=== PATIENT | male | born 1960 | race Caucasian/White ===

== ENCOUNTER 2018-03-11 09:09 | Emergency (ER) | payer BC, SELFPAY ==
[2018-03-11 09:16] VITALS: BP 151/86; PULSE 60; RESP 24; TEMP 36.2; O2SAT 100
--- NOTE | 2018-03-11 09:22 | ED.GENADUL ---
Disposition Clinical Impression: Nephrolithiasis, Hydronephrosis Disposition: HOME Condition: Good Instructions: Kidney Stones (ED) Additional Instructions: Drink plenty of fluids. Take the Flomax as directed. Alternate Tylenol and Motrin as needed and directed for pain. You should receive a call from care management regarding follow-up with urologist Dr. Bautista next week. Return to the emergency department with any worsening or new concerning symptoms. Prescriptions: Tamsulosin HCl [Flomax] 0.4 mg PO DAILY 10 Days cap.er.24h Referrals: Ari Bautista MD [ [facility] STAFF PHYSICIAN] - Medical Decision Making - Lab Data Laboratory Tests 03/11/18 03/11/18 03/11/18 09:20 09:20 10:25 WBC 10.86 H RBC 5.12 Hgb 15.5 Hct 44.3 MCV 86.5 MCH 30.3 MCHC 35.0 RDW 12.7 Plt Count 184 MPV 9.3 Immature Gran % 0.2 Neutrophils % 82.4 Lymphocytes % 11.2 Monocytes % 5.6 Eosinophils % 0.4 Basophils % 0.2 Absolute Neutrophils 8.95 H Absolute Lymphocytes 1.22 Absolute Monocytes 0.61 Absolute Eosinophils 0.04 Absolute Basophils 0.02 Sodium 138 Potassium 3.8 Chloride 101 Carbon Dioxide 29.7 Anion Gap 7.3 BUN 23 H Creatinine 1.27 Estimated GFR/1.73 m2 58.05 Glucose 171 H Calcium 9.3 Total Bilirubin 1.7 H AST 18 ALT 25 Alkaline Phosphatase 74 Total Protein 8.2 Albumin 4.1 Lipase 142 Urine Color Yellow Urine Clarity Sl cloudy Urine pH 8.5 H Ur Specific Odonnell 1.015 Urine Protein Negative Urine Ketones 40 H Urine Blood Moderate H Urine Nitrite Negative Urine Bilirubin Negative Urine Urobilinogen 0.2 Ur Leukocyte Esterase Negative Urine RBC 20-50 H Urine WBC 0-2 Ur Epithelial Cells Rare Urine Crystals Few amorphous Urine Bacteria Few Urine Casts 0-1 rbc Urine Mucus Trace Ur Culture Indicated? No Urine Glucose 100 - Radiology Data Radiology results: report reviewed, image reviewed CT renal colic: Severe left hydronephrosis and left perinephric stranding. There is a 4.6-4.8 mm calculus in the left UV junction. - Medical Decision Making 58-year-old male who presents with left flank pain with vomiting ?3 this morning. No previous history of kidney stones. Unable to do full exam including genitourinary due to patient discomfort. He has left CVA tenderness. Abdomen soft and nontender. No fever. Normal blood pressure. We will place an IV, bolus IV fluids, Toradol, Zofran, labs, urinalysis and CT renal colic. Will reassess including exam. 1015 --patient feels better. Unable to give urinalysis. To go to CT now. 1050 --labs and imaging reviewed. Urinalysis noted blood but no infection. Normal creatinine. CT notes severe left hydronephrosis with perinephric stranding as well as a 4.6 mm calculus in the left UV junction. Patient is completely pain-free. He states he had relief after Toradol to 08/22 from 04/21 but then pain returned while in CAT scan. States after CAT scan he urinated and pain is now completely resolved. Suspect stone in bladder or he may have passed it. Will call urology for recommendations. exam no acute findings. 1130 --discussed with Dr. Bautista -agrees that stone may be likely in bladder or patient may have passed it. Recommends Flomax. Will follow up with patient in the office next week. Patient feels good to go home. Patient initially declined pain medication for home but is now agreeable to take home if needed. Will place pt on care management list to make pt a f/u appt with urology for next week. Pt instructed to return with any worsening symptoms or concerns. History of Present Illness - General Chief complaint: FlankPain Stated complaint: LOWER BACK PAIN Time Seen by Provider: 03/11/18 09:19 Source: patient Mode of arrival: ambulatory Limitations: no limitations - History of Present Illness Initial comments: Patient is a 58-year-old male presents with left flank pain since this morning. No radiation of pain. Patient vomited 3 times. Patient presented to ED extremely uncomfortable with nausea and sitting up on stretcher. Unable to fully assess due to pain. - Related Data Cholecalciferol (Vitamin D3) [Vitamin D3] 1,000 unit PO DAILY 01/17/13 Tamsulosin HCl [Flomax] 0.4 mg PO DAILY 10 Days cap.er.24h 03/11/18 Allergies Allergy/AdvReac Type Severity Reaction Status Date / Time No Known Allergies Allergy Unverified 03/11/18 09:23 Review of Systems Constitutional: denies: chills, fever Eyes: denies: eye pain ENT: denies: ear pain, dental pain Respiratory: denies: cough, shortness of breath Cardiovascular: denies: chest pain, dyspnea on exertion Gastrointestinal: denies: abdominal pain, nausea, vomiting Genitourinary: denies: urgency, dysuria, frequency Musculoskeletal: back pain Skin: denies: rash, lesions Neurological: denies: headache, weakness, numbness Past Medical History - Past Medical History Colon adenoma Surgical history: other (Ex lap with lysis of RLQ constriction band) - Social History Smoking status: never smoker Alcohol use: none Drug use: none General Exam - General Limitations: no limitations General appearance: alert, other (appears uncomfortable) - Eye Eye exam: Present: EOMI - ENT ENT exam: Present: mucous membranes moist - Neck Neck exam: Present: normal inspection - Respiratory Respiratory exam: Present: normal lung sounds bilaterally. Absent: respiratory distress, wheezes, rales, rhonchi, stridor - Cardiovascular Cardiovascular Exam: Present: regular rate, normal rhythm. Absent: bradycardia, tachycardia - GI/Abdominal GI/Abdominal exam: Present: soft, normal bowel sounds. Absent: distended, tenderness, guarding, rebound, rigid - exam: Present: normal inspection. Absent: testicular tenderness, scrotal swelling External exam: Present: normal external exam. Absent: erythema, swelling, lesions - Back Exam Back exam: Present: CVA tenderness (L). Absent: CVA tenderness (R) - Neurological Exam Neurological exam: Present: alert, oriented X3 - Psychiatric Psychiatric exam: Present: normal affect - Skin Skin exam: Present: warm, dry, intact Course Vital Signs - 24 hr 03/11/18 09:16 Temperature 97.2 F L Pulse 60 Respiratory 24 Rate Blood Pressure 151/86 Pulse Oximetry 100
--- NOTE | 2018-03-11 09:30 | DI.RPTCT_ITS ---
SYMPTOM/DIAGNOSIS: LT FLANK PAIN, VOMITING, ? KIDNEY STONE RENAL COLIC CT: The noncontrast enhanced examination was performed according to the usual protocol. There are small regions of bibasilar atelectasis. No acute abnormality is noted in the lung bases. The liver, gallbladder, pancreas and spleen are intact. The right kidney is unremarkable. There is severe hydronephrosis and perinephric stranding involving the left kidney. There is left ureterectasis and a 4.8 mm. calculus is impacted at the left ureterovesical junction. A small excrescence on the superior border of the left kidney likely represents a small cyst. Allowing for incomplete distension, the bladder appears intact. Two small fat containing inguinal hernias are demonstrated. The adrenals are normal. There is no evidence of bowel obstruction. The appendix is normal. Sigmoid diverticulosis is noted without evidence of diverticulitis. Calcification is demonstrated in a mildly enlarged prostate. There are atherosclerotic changes involving the aorta without evidence of an aneurysm. Mild degenerative changes involving the lumbar spine are identified. The bony structures appear otherwise unremarkable. SUMMARY: There is severe left hydronephrosis and perinephric stranding and ureterectasis secondary to a 4.6 mm. stone impacted at the left ureterovesical junction.
[2018-03-11] MEDS: Ondansetron 4 MG/2 ML VIAL IVP (09:31)
[2018-03-11] MEDS: Ketorolac 30 MG/ML VIAL IVP (09:31)
[2018-03-11] MEDS: Normal Saline 1,000 ML 1000 ML IV (09:37)
[2018-03-11] MEDS: Normal Saline Flush 10 ML SYR IVP (09:38)
[2018-03-11 09:40] LABS: Abs Immature Grans 0.02 k/cumm (0.0-0.09); Absolute Basophil Count 0.02 k/cumm (0.0-0.2); Absolute Eosinophil Count 0.04 k/cumm (0.0-0.7); Absolute Lymphocyte Count 1.22 k/cumm (1.2-3.4); Absolute Monocyte Count 0.61 k/cumm (0.11-0.7); Absolute Neutrophil Count 8.95 k/cumm (1.2-6.7); Basophils % 0.2; Eosinophils % 0.4; HCT 44.3 % (40.0-50.0); HGB 15.5 g/dL (13.5-17.5); Immature Grans % 0.2; Lymphocytes % 11.2; Mean Corpuscular Hemoglobin 30.3 pg (27.0-33.0); Mean Corpuscular Volume 86.5 fL (80-95); Mean Platelet Volume 9.3 fL (8.0-11.0); Monocytes % 5.6; Neutrophils % 82.4; Platelet Count 184 x1000/uL (130-400); RBC 5.12 m/cumm (4.50-6.00); RBC Distribution Width 12.7 % (11.8-14.1); White Blood Cell Count 10.86 k/cumm (4.4-10.8)
[2018-03-11 09:56] LABS: ALT 25 U/L (12-78); AST 18 U/L (15-37); Albumin 4.1 g/dL (3.4-5.0); Alkaline Phosphatase 74 U/L (46-116); Anion Gap 7.3 mmol/L (3-11); BUN 23 mg/dL (7-18); Bilirubin, Total 1.7 mg/dL (0.2-1.0); CO2 29.7 mmol/L (21.0-32.0); CREATININE 1.27 mg/dL (0.70-1.30); Calcium 9.3 mg/dL (8.5-10.1); Chloride 101 mmol/L (98-107); Estimated GFR 58.05 (mL/min/1.73m2); Glucose 171 mg/dL (70-100); Lipase 142 U/L (73-393); Potassium 3.8 mmol/L (3.5-5.1); Sodium 138 mmol/L (136-145); Total Protein 8.2 g/dL (6.4-8.2)
[2018-03-11 10:29] LABS: Bilirubin Negative (Negative); Blood Moderate (Negative); Clarity Sl Cloudy; Glucose 100 mg/dL (Negative); Ketones 40 mg/dL (Negative); Leukocyte Esterase Negative (Negative); Nitrite Negative (Negative); Specific Gravity 1.015 (1.005-1.025); Urobilinogen 0.2 EU/dL (Up TO 0.2); pH 8.5 (5-8)
[2018-03-11 10:39] LABS: Bacteria Few HPF (Negative); Crystals Few Amorphous HPF (Negative); Epithelial Cells Rare HPF (Negative); Mucus Trace (Negative); RBC 20-50 (0-2); WBC 0-2 HPF (0-5)
[2018-03-11 10:40] LABS: C & S Indicated? No
[2018-03-11] MEDS: oxyCODONE 5 MG TAB 10 MG PO (11:42)
[2018-03-11 11:45] VITALS: BP 114/80; PULSE 62; RESP 16; TEMP 36.6; O2SAT 99
--- NOTE | 2018-03-12 11:17 | PDOC.ERCMPRO ---
Care Management Progress Note 03/12-Dr. Elizabeth requested assistance with a urology f/u in one week for kidney stone with hydronephrosis. Dr. Bautista and Jennifer were consulted on this patient. Referral faxed to Urology this am.
== END 2018-03-11 11:56 | disposition home or self-care (01) ==
PROVIDERS: Emergency Provider Physician Assistant; PCP Family Medicine
DX: N13.2 Hydronephrosis with renal and ureteral calculous obstruction (principal)
CPT/HCPCS: 80053; 83690; 96361; 96374; 96375; 99284; 74176; 81003; 81015; 85025; 99285; J2405

== ENCOUNTER 2020-10-09 15:40 | Outpatient (REF) | payer BC, SELFPAY ==
[2020-10-09 22:08] LABS: Bilirubin Negative (Negative); Blood Negative (Negative); Clarity Clear (Clear); Glucose Negative (Negative); Ketones Negative (Negative); Leukocyte Esterase Negative (Negative); Nitrite Negative (Negative); Specific Gravity >= 1.030 (1.005-1.025); Urobilinogen 0.2 EU/dL (Up TO 0.2)
[2020-10-10 16:46] LABS: PSA, Screening 1.6 ng/mL (0.0-4.5)
== END 2020-10-09 15:41 | disposition home or self-care (01) ==
LOC: LBN 15:40
PROVIDERS: PCP Family Medicine; Visit Provider Family Medicine
DX: Z00.00 Encounter for general adult medical examination without abnormal findings (principal); R35.0 Frequency of micturition; Z12.5 Encounter for screening for malignant neoplasm of prostate
CPT/HCPCS: 84153; 81003

== ENCOUNTER 2022-01-14 04:02 | Outpatient (CLI) | payer BC, SELFPAY ==
[2022-01-14 12:37] LABS: ALT 34 U/L (16-63); AST 20 U/L (15-37); Albumin 3.6 g/dL (3.4-5.0); Alkaline Phosphatase 67 U/L (46-116); Anion Gap 6.3 mmol/L (3-11); BUN 18 mg/dL (7-18); Bilirubin, Total 1.1 mg/dL (0.2-1.0); CO2 31.7 mmol/L (21.0-32.0); Calcium 8.7 mg/dL (8.5-10.1); Calculated LDL 147 mg/dL (<100); Chloride 101 mmol/L (98-107); Cholesterol 214 mg/dL (<200); Glucose 86 mg/dL (74-106); HDL Cholesterol 58 mg/dL (40-60); Potassium 3.9 mmol/L (3.5-5.1); Sodium 139 mmol/L (136-145); Total Protein 7.2 g/dL (6.4-8.2); Triglyceride 49 mg/dL (<150)
[2022-01-14 23:57] LABS: PSA, Screening 1.8 ng/mL (<=4.5)
== END 2022-01-14 04:03 | disposition home or self-care (01) ==
LOC: LOS 04:02
PROVIDERS: PCP Family Medicine; Visit Provider Family Medicine
DX: Z00.00 Encounter for general adult medical examination without abnormal findings (principal); Z13.220 Encounter for screening for lipoid disorders; R35.0 Frequency of micturition; Z12.5 Encounter for screening for malignant neoplasm of prostate
CPT/HCPCS: 36415; 80053; 80061; 84153

== ENCOUNTER 2022-04-21 15:15 | Emergency (ER) | payer BC, SELFPAY ==
[2022-04-21] VITALS (18 sets, daily range): BP systolic 113–162; BP diastolic 66–92; PULSE 57–79; RESP 8–20; TEMP 37; O2SAT 96–100
--- NOTE | 2022-04-21 15:15 | RT.EKG_ITS ---
APPROVED REPORT Exam: Resting ECG Reason for Exam: chest pressure Patient Location: E HR:67 bpm ECG Measurements Heart Rate 67 AXIS WA 144 P 16 QRSd 94 QRS 10 QT 371 T 13 QTc 393 Conclusion Sinus rhythm...normal P axis, V-rate 60- 99 sinus rhtyhm, normal axis, normal intervals, non ischemic
--- NOTE | 2022-04-21 15:30 | DI.RAD_ITS ---
Exam(s) XR PORTABLE CHEST AP EXAM: XR PORTABLE CHEST AP CLINICAL HISTORY: chest pain, sob TECHNIQUE: 2D digital imaging was performed. COMPARISON: CR ABD FLAT UPRIGHT PA CHEST from 03/25/2017 FINDINGS: LUNGS: Clear. No pleural abnormality seen. HEART: Normal. AORTA: Normal. BONES: Unremarkable for age. Soft tissues: Unremarkable. IMPRESSION: No acute findings. DATA REPOSITORY: RADIATION DOSE DELIVERED:
--- NOTE | 2022-04-21 15:46 | ED.GENADUL_ITS ---
Discharge Plan Disposition Patient Disposition: HOME Condition: Improving Discharge Details Clinical Impression: Chest pain Primary Care Provider: Rosalia Leija ED Provider: Miguel Schaeffer Home Meds and New Rx's Prescriptions: New aspirin 81 mg tablet,delayed release (DR/EC) 81 mg PO DAILY 7 Days Qty: 7 0RF No Action cholecalciferol (vitamin D3) 50 mcg (2,000 unit) capsule 50 mcg PO DAILY glucosamine sulfate [Glucosamine] 750 mg Tablet 1,500 mg PO DAILY Rx Instructions: administer with meals Discharge Instructions Instructions: Chest Pain (ED) Additional Instructions: Please follow-up with your primary care physician. Please return to the emergency department for any worsening symptoms. We will be reaching out to schedule you with local [facility] for further evaluation. Medical Decision Making 62-year-old male presents with left anterior chest pain and resolved pallor in the setting of physical labor at home, resolved before arrival, no history of cardiac disease or thromboembolic disease, hemodynamically stable afebrile nontoxic no tachypnea tachycardia or hypoxia no peripheral edema. EKG normal sinus rhythm normal axis consider slight ST depressions V5 V6. Consider ACS versus orthostasis/vasovagal versus musculoskeletal strain versus less likely PE or aortic pathology. Will obtain serial troponins, aspirin is already been provided prearrival, patient not endorsing any pain nausea or systemic signs of illness at this time, will obtain EKG and chest x-ray as well as basic labs disposition pending reassessment of symptoms and lab and imaging results. 19: 22 patient resting comfortably afebrile nontoxic no chest pain no respiratory distress x-ray and labs unremarkable. Consider vasospastic event versus musculoskeletal pain versus costochondritis versus pleurisy. Will refer patient to cardiology for follow-up. Will follow with his primary; home care instructions and return precautions given HPI General Date/Time Provider Initiated Documentation: 04/21/22 15:27 . HPI Narrative: 62-year-old male presents with left anterior chest pain associated with shortness of breath that began while he was performing manual labor at home this afternoon/evening, self resolved, gave him aspirin. endorses that he appeared slightly chalky in color during this event. Symptoms have resolved on their own. Denies chest pain or shortness of breath currently. Did have symptoms of indigestion yesterday. Denies history of cardiac disease denies history of thromboembolic phenomenon. Denies recent travel, denies recent injury Related Data Home Medications Medication Instructions Recorded Confirmed cholecalciferol (vitamin D3) 50 50 mcg PO DAILY 10/09/20 04/21/22 mcg (2,000 unit) capsule aspirin 81 mg tablet,delayed 81 mg PO DAILY 7 days #7 tabs 04/21/22 release glucosamine sulfate 750 mg tablet 1,500 mg PO DAILY 04/21/22 04/21/22 Previous Rx's Medication Instructions Recorded aspirin 81 mg tablet,delayed 81 mg PO DAILY 7 days #7 tabs 04/21/22 release Allergies Allergy/AdvReac Type Severity Reaction Status Date / Time No Known Allergies Allergy Verified 10/30/21 11:49 General Stated Complaint: Chest Pain YAMILET: 2 Review of Systems Narrative: Review of Systems Constitutional: negative Eyes: negative ENT: negative Cardiovascular: Chest pain Respiratory: negative Gastrointestinal: negative : negative Musculoskeletal: negative Skin: negative Neurologic: negative Psych: negative PFSH All Active Problems (Updated 04/21/22 @ 19:24 by Miguel Schaeffer MD) Chest pain (Acute) Urinary frequency (Acute) COVID (Acute ~03/2021) Diarrhea (Acute) Annual physical exam (Acute 10/15/17) Diverticulosis of colon without diverticulitis (Acute) Polyp of colon (Acute) 2003; 2005; 2007; TUBULAR ADENOMA and hyperplastic polyp 2012; TUBULAR ADENOMA Scrotal varices (Acute) LEFT Medical History Diverticulosis Herpes zoster Scrotal varices Tubular adenoma of colon Surgical History Colonoscopy - IV Sedation (03/25/17) Repair of inguinal hernia (~08/2003) B/L Family History Mother , 92 Essential hypertension Heart disease Hyperlipidemia Father , 68 Diabetes Prostate cancer Sister Colon cancer Brother Diabetes Essential hypertension Hyperlipidemia Maternal Grandfather Throat cancer Paternal Grandfather , 66 Alcohol abuse Maternal Grandmother , 76 No problems noted. Paternal Grandmother , 77 Colon cancer Sister , MVA at age 60. No problems noted. Sister No problems noted. Sister No problems noted. Sister No problems noted. Son No problems noted. Son No problems noted. Social History (Updated 01/09/22 @ 10:35 by Lluvia Farah) Smoking/Tobacco Use Status: Never Second Hand Exposure: No Smoking risk assessment performed?: Yes Alcohol Intake: never Drug use: Never Caregiver/Support person: No Household members: spouse and children Housing: house Communication Needs: Corrective Lenses Do you need help understanding health information?: Never Pets and animals: Yes Pets and animals: dog(s) Sexually active: Yes Do you think of yourself as: straight/heterosexual Current gender identity: male What is your relationship status?: How often do you talk on the phone with friends or family?: three or more times per week How often do you get together with friends or relatives?: three or more times per week How often do you attend samaritan or taoist services?: decline to answer Do you belong to any clubs or organized social groups?: no Panel score (0-1 are the most socially isolated patients): 2 What type of physical activity do you participate in: other Details: Farming Duration: > 90 minutes/day Frequency: daily Laura/Religious: No preference Special laura needs: No Seatbelt use: always Drive intox or ride w/intox class a regional drivers: No Do you feel safe at home: Yes Do you feel safe in your relationship?: Yes Exam Narrative Exam Narrative: Physical Examination General: alert, awake, cooperative, resting comfortably, no acute distress HEENT: normocephalic, atraumatic; PERRL, EOM intact, conjunctiva normal; no nasal discharge; moist mucous membranes, oral and pharyngeal mucosa normal, tolerating secretions Neck: supple, trachea midline; full ROM Chest: normal to inspection Respiratory: normal respiratory effort, speaking in full sentences, clear to auscultation, no wheezing, rales or rhonchi Cardiac: regular rate, regular rhythm, S1S2 intact, no murmurs rubs or gallops GI: abdomen soft, non-tender, non-distended; no palpable mass or hepatosplenomegaly Skin: no lesions, rashes or trauma appreciated Neuro: AAOx3, normal speech, moving all extremities Extremities: No peripheral edema Psych: Appropriate mood and affect Course Vital Signs Vital signs: Vital Signs Temperature 37.0 C 04/21/22 15:20 Pulse 66 04/21/22 15:20 Respiratory Rate 12 04/21/22 15:20 Blood Pressure 162/92 H 04/21/22 15:20 Pulse Oximetry 98 04/21/22 15:20 Temperature 37.0 C 04/21/22 15:20 Pulse 65 04/21/22 15:29 Pulse 71 04/21/22 15:30 Respiratory Rate 14 04/21/22 15:30 Respiratory Effort Non-Labored 04/21/22 15:36 Blood Pressure 162/92 H 04/21/22 15:29 Blood Pressure Mean 109 04/21/22 15:29 Blood Pressure Position Sitting 04/21/22 15:20 Pulse Oximetry 99 04/21/22 15:30 Oxygen Delivery Method Room Air 04/21/22 15:20 Oxygen Flow Rate 0 04/21/22 15:20
[2022-04-21 15:59] LABS: Abs Immature Grans 0.04 10^3/uL (0.0-0.06); Absolute Basophil Count 0.06 10^3/uL (0.0-0.2); Absolute Eosinophil Count 0.34 10^3/uL (0.0-0.7); Absolute Lymphocyte Count 1.95 10^3/uL (1.2-3.4); Absolute Neutrophil Count 5.13 10^3/uL (1.2-6.7); Basophils % 0.7; Eosinophils % 4.1; HCT 44.7 % (40.0-50.0); HGB 15.5 g/dL (13.5-17.5); Immature Grans % 0.5; Lymphocytes % 23.7; MCH 29.9 pg (27.0-33.0); MCHC 34.7 % (32.0-36.0); MCV 86 fL (80-95); MPV 9.4 fL (8.0-11.0); Monocytes % 8.5; Neutrophils % 62.5; Platelet Count 214 10^3/uL (130-400); RBC 5.19 10^6/uL (4.36-5.78); RDW 12.2 % (11.8-14.1); RDW-SD 38.9 fL; WBC 8.22 10^3/uL (4.4-10.8)
[2022-04-21 16:15] LABS: ALT 32 U/L (16-63); AST 18 U/L (15-37); Albumin 3.8 g/dL (3.4-5.0); Alkaline Phosphatase 82 U/L (46-116); Anion Gap 5.5 mmol/L (3-11); BUN 16 mg/dL (7-18); Bilirubin, Total 0.9 mg/dL (0.2-1.0); CO2 31.5 mmol/L (21.0-32.0); CREATININE 0.9 mg/dL (0.70-1.30); Calcium 9.2 mg/dL (8.5-10.1); Chloride 100 mmol/L (98-107); Estimated GFR 95.97 (mL/min/1.73m2); Glucose 83 mg/dL (74-106); Lipase 84 U/L (73-393); Potassium 3.8 mmol/L (3.5-5.1); Sodium 137 mmol/L (136-145); Troponin I < 50 ng/L (<or=60)
[2022-04-21 19:00] LABS: Troponin I < 50 ng/L (<or=60)
--- NOTE | 2022-04-21 20:35 | NUR.NOTE ---
Referral made to Cardiology for chest pain next week per Dr. Linn. Put the referral in the care manger's box for follow up assistance as I was unable to fax the referral due to technical difficulties with the fax machine.Nursing Note:
[2022-04-22 10:50] LABS: Lab Add On Test DONE
[2022-04-22 11:17] LABS: Calculated LDL 139 mg/dL (<100); Cholesterol 219 mg/dL (<200); HDL Cholesterol 53 mg/dL (40-60); TSH (W/Ref FT4) 2.95 uIU/mL (0.36-3.74); Triglyceride 136 mg/dL (<150)
== END 2022-04-21 19:37 | disposition home or self-care (01) ==
PROVIDERS: Emergency Provider Emergency Medicine; PCP Family Medicine
DX: R07.89 Other chest pain (principal)
CPT/HCPCS: 36415; 80053; 80061; 83690; 93005; 99283; 71045; 84443; 84484; 85025; 93010; 99285

== ENCOUNTER → 2022-04-24 01:00 | Outpatient (CLI) | payer BC, SELFPAY ==
--- NOTE | 2022-04-24 08:15 | ETT_ITS ---
APPROVED REPORT Exam: Exercise Treadmill Patient Location: Out-Patient Room/Bed: Stress Nurse: Sonia Deutsch RN Ordering Provider:GREGORIO SUBRAMANIAN, Contact Number: [phone] BMI: 24.95 Baseline Rhythm: Sinus Rhythm Comment: Diffuse, minimal ST depression Indications: Chest pain Medical History Medical History: None Cardiac Medications: Aspirin, Nitro Allergies: None Cardiac Risk Factors: +Family history Previous Cardiac Procedures: None Pretest Chest Pain Characteristics: None Exercise History: Physically active Physical Disabilities: None Lung Sounds: Clear Heart Sounds: Regular Stress Test Details Test: Exercise stress testing was performed using a Brayan protocol. Rest Stress HR Resting HR Supine: 77 bpm Max Heart Rate (APMHR): 157 bpm Resting HR Standin bpm Target HR (85% APMHR): 133 bpm Max HR Achieved: 162 bpm % of APMHR: 103 Recovery HR: 91 bpm HR response to stress: Normal HR response to stress BP Resting BP Supine: 142/88 mmHg Resting BP Standin/80 mmHg Max BP: 192/78 mmHg Recovery BP: 148/90 mmHg BP response to stress: Normal blood pressure response to stress. ECG Resting ECG: Sinus Rhythm Ectopy: None Comment: Minimal, diffuse ST depression Stress ECG: Sinus Tachycardia ST Change: Upsloping ST depression Lead(s): II, III, aVF, V4, V5, V6 Stage: [address] Deviation: 1-2 mm Arrhythmia: None Recovery ECG: Sinus Rhythm Recovery ST Change: Upsloping ST depression Lead(s): II, III, aVF, V4, V5,V6 Recovery ST Deviation: 2 mm Recovery Arrhythmia: None Comment: ST changes returned to baseline by 2 minutes into recovery period Clinical Reason for Termination: Target HR Achieved Stress Symptoms: Chest pain, Left elbow pain Exercise duration: 10 min sec Highest Stage Reached: Stage 4: 4.2 mph at 16% grade. Exercise capacity: 12 METs Angina Score: Non-Limiting Toth Treadmill Score: 3.0 Rate Pressure Product: [id number] Stress ECG Conclusion 1. Resting electrocardiogram showed diffuse ST depression 2. Patient exercised on the Brayan protocol and completed a workload of 12 METS. Patient described ex ertional chest and arm discomfort consistent with angina 3. Normal heart rate and blood pressure response to exercise; peak heart rate achieved was greater th an 100% of predicted for age 4. Electrocardiographically the test was positive for myocardial ischemia with 2 to 3 mm of additiona l ST depression noted in the inferior and anterolateral leads 5. There were no significant dysrhythmias 6. Suggest referral for cardiac evaluation, possibly to include cardiac catheterization Toth Treadmill Score is 3.0 which is Moderate risk. Stress Test Summary STAGE Time (mins) Speed (mph) Grade (%) HR BP SpO2 SYMPTOMS METS Supine 77 142/88 Standing 81 150/80 1 3 1.7 10 112 162/84 4.5 2 6 2.5 12 130 188/76 7 3 9 3.4 14 146 Left elbow discomfort 10 4 12 4.2 16 162 13 1 min recovery 124 192/78 chest pain 1/10 w/ left elbow discomfort 3 min recovery 93 180/86 Chest pain and elbow discomfort resolved 6 min recovery 91 148/90 Patient presented to stress lab for regular exercise stress test. Patient denied any symptoms prior t o stress test. Patients vital signs were stable. Noted slight, diffuse ST depression. Began exercise and reported mild elbow discomfort in stage 3, denied chest pain at this point in the test. Patient r eported 1/10 chest pain along with continued left elbow discomfort at 1 minute recovery. These sympto ms lasted less than [address] changes returned to baseline within [address]D james was contacted and informed of ST changes and patients symptoms as noted. made aware that patient was symptom free and relayed that patient was okay for discharge.
== END ==
PROVIDERS: PCP Family Medicine; Visit Provider Family Medicine
DX: R07.9 Chest pain, unspecified (principal)
CPT/HCPCS: 93017

== ENCOUNTER 2022-05-16 09:56 | Outpatient (RCR) | payer BC, SELFPAY ==
--- NOTE | 2022-05-16 10:00 | HOLTER_ITS ---
APPROVED REPORT Conclusion This is a 48-hour Holter monitor ordered for palpitations Rhythm throughout was sinus with an average heart rate of 63. Minimum was 48, maximum 107 A total of 2 isolated premature ventricular contractions were recorded There were 16 atrial premature beats There was no atrial fibrillation, no supraventricular tachycardia, no high-grade AV block, no pauses greater than 3 seconds There were no apparent patient symptoms
== END 2022-06-11 23:59 | disposition home or self-care (01) ==
LOC: CARDOPNVT 09:56
PROVIDERS: PCP Family Medicine; Visit Provider Family Medicine
DX: R00.2 Palpitations (principal); I49.1 Atrial premature depolarization
CPT/HCPCS: 93225; 93226

== ENCOUNTER → 2022-06-03 01:04 | Outpatient (CLI) | payer BC, SELFPAY ==
--- NOTE | 2022-06-03 14:48 | DI.US_ITS ---
APPROVED REPORT EXAM: Comprehensive 2D, Doppler, and color-flow Echocardiogram Patient Location: Out-Patient Medical Examiner: Kathrine Velazco RDCS (AE) Indications: Chest pain Other Information Study Quality: Adequate Conclusion Normal left ventricular wall thickness and chamber size. Estimated ejection fraction is 55 to 60%. Wall motion is normal Normal right ventricular size and systolic function Both atria are normal in size There is no structural or hemodynamically significant valvular disease Estimated right ventricular systolic pressure is 26 mmHg Wall motion Left Ventricle The left ventricle is normal size. The left ventricular systolic function is normal. The left ventric ular ejection fraction is within the normal range. There is normal left ventricular wall thickness. T here is normal LV segmental wall motion. There is no ventricular septal defect visualized. LVEF is 59 %. Right Ventricle The right ventricle is normal size. The right ventricular systolic function is normal. The RVSP is 26 .4 mmHg. Atria The left atrium size is normal. The right atrium size is normal. The interatrial septum is intact wit h no evidence for an atrial septal defect. Aortic Valve The aortic valve is normal in structure. Aortic valve is trileaflet. There is no aortic valvular sten osis. No aortic regurgitation is present. Mitral Valve The mitral valve is normal in structure. No evidence of mitral valve stenosis. Trace to mild mitral r egurgitation. Tricuspid Valve The tricuspid valve is normal in structure. There is no tricuspid valve stenosis. Trace to mild tricu spid regurgitation. Pulmonic Valve The pulmonary valve is normal in structure. There is no pulmonic valvular stenosis. Trace pulmonic re gurgitation. Great Vessels The aortic root is normal in size. The ascending aorta is normal in size. Aortic arch is normal in ca liber. IVC is normal in size and collapses >50% with inspiration. Pericardium There is no pericardial effusion. 2D Dimensions IVSD d PLAX 0.90 cm M: 0.6-1.2 LV Vol A2C d MOD 81.9 mL LVPW d PLAX 0.92 cm M: 0.6 - 1.2 LV Vol A4C d MOD 116.9 mL LVID d PLAX 4.93 cm M: 4.2 - 5.8 LA vol/ BSA A2C s A-L 28.7 mL/m2 LVDs 3.35 cm M: 2.5 - 4.0 LA vol/ BSA A4C s A-L 19.9 mL/m2 Ao Root d 3.33 cm M: 3.1 - 3.7 LA Vol/ BSA Biplane s A-L 26.4 mL/m2 RA Area A4C 11.49 cm2 LA Area A4C s MOD 13.99 cm2 RA Vol/ BSA A4C s A-L 14.1 mL/m2 LA Area A2C s MOD 18.53 cm2 Ao Asc Diam d 3.05 cm M: 2.6 - 3.4 LV EF A4C MOD 59.5 % LV EF Teichholz 58.7 % LV EF A2C MOD 59.0 % LVEF (Kohler's) 58.33 % M: 52 - 72 LV EF Biplane MOD 58.3 % LV Volume 75.00 mL M: 62 - 150 SV 57.09 mL LV Volume Index 40.10 mL/m2 M: 34 - 74 SV Index 30.41 mL/m2 LV Vol Biplane MOD 97.9 mL FS 31.10 % M-Mode TAPSE 2.68 cm (M/F) >1.7 LV Diastology MV E' medial 0.067 (>0.07 m/s) E/A Ratio 0.8 LV E/e MED 9.90 (<14) MV E Vmax 0.66 (0.4-1.3 m/s) MV E' lateral 0.114 (>0.1 m/s) MV A Vmax 0.80 (0.4-1.3 m/s) LV E/e LAT 5.80 (<14) MV E/A Ratio 0.82 MV E/E' medial 9.93 MV E/E' lateral 5.82 Aortic Valve LVOT Area 3.24 cm2 AoV Area Vmax 2.97 cm2 LVOT Vmax 1.07 m/s AoV Area/ BSA (Vmax) 1.58 cm2/m2 LVOT Mean Néstor. 0.68 m/s MARY Mean Néstor. 2.78 cm2 LVOT Peak Grad 4.5 mmHg MARY Mean Néstor. Index 1.48 cm2/m2 LVOT Mean Grad 2.2 mmHg LVOT VTI 0.236 m LVOT Diam s 2.00 cm AoV Vmax 1.17 m/s Velocity Ratio 0.91 AoV Mean Néstor. 0.80 m/s AoV Peak Grad 5.4 mmHg LVOT SV 76.52 mL AoV Mean Grad 2.8 mmHg AoV VTI 0.247 m AoV Area VTI 3.09 cm2 AoV Area/ BSA (VTI) 1.65 cm/m2 Mitral Valve MV DT 203 (160-240 msec) MV PHT 59 msec MV Area PHT 3.74 cm2 MV VTI 0.256 m MV Area VTI 2.99 (4.0-6.0 cm2) Pulmonary Valve PV Vmax 0.99 (0.5-1.5 m/s) RVOT Peak Gr. 1.44 mmHg PV Peak Grad 3.9 mmHg RVOT Mean Gr. 0.75 mmHg PV Mean Grad 2.0 mmHg RVOT VTI 0.149 m PV VTI 0.227 m RVOT Vmax 0.60 m/s Tricuspid Valve TR Peak Grad 23.4 mmHg TR Vmax 2.42 m/s RA Pressure 3.00 mmHg RVSP (TR) 26.4 mmHg
== END ==
PROVIDERS: PCP Family Medicine; Visit Provider Family Medicine
DX: R07.9 Chest pain, unspecified (principal)
CPT/HCPCS: 93306

== ENCOUNTER → 2022-06-16 01:36 | Outpatient (CLI) | payer BC, SELFPAY ==
--- NOTE | 2022-06-16 06:45 | DI.RAD_ITS ---
Exam(s) RF BARIUM SWALLOW EXAM: RF BARIUM SWALLOW CLINICAL HISTORY: GERD, ? HIATAL ERNIA,K21.9 TECHNIQUE: 2D and realtime digital imaging was performed. CONTRAST MATERIAL: Thick and thin barium and barium tablet were administered. COMPARISON: CT RENAL COLIC WO CONTRAST from 03/11/2018 CR XR PORTABLE CHEST AP from 04/21/2022 FINDINGS: PA and lateral casing finisher and stuffer views of the chest show normal heart size and clear lung ferro. The lateral sc out view of the neck shows degenerative disc changes. Esophagus: The patient swallowed barium without difficulty. Noevidence for mucosal erosions. Nofold thickening. No mass is visible. Nostricture. Motility: There is a normal primary stripping wave. No tertiary contractions were noted. There is a small sliding hiatal hernia. Minimal gastroesophageal reflux was observed during the exam. IMPRESSION: Small sliding hiatal hernia and minimal gastroesophageal reflux. RADIATION DOSE DELIVERED: ovi Guzman=12.8 mGy
[2022-06-16] MEDS: Barium Sulfate 700 MG TAB PO (09:29)
[2022-06-16] MEDS: Barium Sulfate 60% W/V 355 ML BTL PO (09:30)
[2022-06-16] MEDS: Simethicone/Sod Bicarb/Cit Ac, 4 gram PACKET 1 PACKET PO (09:30)
== END ==
PROVIDERS: PCP Family Medicine; Visit Provider Family Medicine
DX: K21.9 Gastro-esophageal reflux disease without esophagitis (principal); K44.9 Diaphragmatic hernia without obstruction or gangrene
CPT/HCPCS: 74221

== ENCOUNTER 2023-10-20 20:11 | Emergency (ER) | payer BC, SELFPAY ==
[2023-10-20 20:13] VITALS: BP 175/98; PULSE 68; RESP 14; TEMP 36.8; O2SAT 98
--- NOTE | 2023-10-20 20:33 | W.ED.GENAD ---
Discharge Plan Disposition Patient Disposition: Home Condition: Stable Discharge Details Chief Complaint: Orthopedic Clinical Impression: Left knee pain Primary Care Provider: Rosalia Leija ED Provider: Miguel Schaeffer Discharge Instructions Instructions: Knee Pain (ED) Additional Instructions: Please follow-up with orthopedic team. Return to the emergency department for any worsening symptoms HPI General Date/Time Provider Initiated Documentation: 10/20/23 20:30. HPI Narrative: 63-year-old male presents with left knee pain over the last 1 to 2 months worse today after jumping from the bed of his truck pain to lateral aspect of left knee, able to ambulate with assistance of crutches. Denies clicking locking or popping or sense of instability Related Data Allergies Allergy/AdvReac Type Severity Reaction Status Date / Time No Known Allergies Allergy Verified 10/20/23 20:21 General Stated Complaint: Orthopedic YAMILET: 3 Review of Systems Narrative: Review of Systems Constitutional: negative Eyes: negative ENT: negative Cardiovascular: negative Respiratory: negative Gastrointestinal: negative : negative Musculoskeletal: Knee pain Skin: negative Neurologic: negative Psych: negative Exam Narrative Exam Narrative: Physical Examination General: alert, awake, cooperative, resting comfortably, no acute distress HEENT: normocephalic, atraumatic; PERRL, EOM intact, conjunctiva normal; no nasal discharge; moist mucous membranes, oral and pharyngeal mucosa normal, tolerating secretions Neck: supple, trachea midline; full ROM Chest: normal to inspection Respiratory: normal respiratory effort, speaking in full sentences Neuro: AAOx3, normal speech, moving all extremities Extremities: Mild left knee effusion, no joint laxity, able to flex and extend without crepitus or locking, warm well-perfused, soft compartments, sensate Psych: Appropriate mood and affect Course Vital Signs Vital signs: Vital Signs Temperature 36.8 C 10/20/23 20:13 Pulse 68 10/20/23 20:13 Respiratory Rate 14 10/20/23 20:13 Blood Pressure 175/98 H 10/20/23 20:13 Pulse Oximetry 98 10/20/23 20:13 Temperature 36.8 C 10/20/23 20:13 Temperature Source Oral 10/20/23 20:13 Pulse 68 10/20/23 20:13 Respiratory Rate 14 10/20/23 20:13 Respiratory Effort Normal, Non-Labored 10/20/23 20:19 Blood Pressure 175/98 H 10/20/23 20:13 Blood Pressure Position Sitting 10/20/23 20:13 Pulse Oximetry 98 10/20/23 20:13 Oxygen Delivery Method Room Air 10/20/23 20:13 Oxygen Flow Rate 0 10/20/23 20:13 Pain Level 5 10/20/23 20:19 Medical Decision Making 63-year-old male presents with 1 to 2-month atraumatic left knee pain, exacerbated today after jumping from the bed of his truck, pain to lateral aspect of left knee, minimal effusion, no joint laxity no crepitus deformity or locking, range of motion intact, ambulatory with the assistance of crutches, consider soft tissue injury such as partial ligamentous injury versus meniscal injury must also consider acute on chronic osteoarthritis low suspicion for fracture or dislocation. Neurovascular exam of limb intact. Trial of analgesia anti-inflammatory screening x-ray likely will be provided with orthopedic follow-up if no improvement of symptomatology would benefit from MRI 21: 47 patient resting comfortably no acute distress. Evidence of small joint effusion on x-ray. No dislocation or fracture. Again high clinical suspicion for soft tissue injury such as ligamentous or meniscal injury. Will be given knee brace and orthopedic referral Quality:SDOH Health Related Social Needs: No Data to Display PFSH All Active Problems (Updated 10/20/23 @ 21:48 by Miguel Schaeffer MD) Left knee pain (Acute) Skin lesion of cheek (Acute) Hiatal hernia with gastroesophageal reflux (Acute) Foreign body (FB) in soft tissue (Acute) GERD (gastroesophageal reflux disease) (Chronic) Palpitations (Acute) Abnormal stress test (Acute) Urinary frequency (Acute) COVID (Acute ~03/2021) Diarrhea (Acute) Annual physical exam (Acute 10/15/17) Diverticulosis of colon without diverticulitis (Acute) Polyp of colon (Acute) 2003; 2005; 2007; TUBULAR ADENOMA and hyperplastic polyp 2012; TUBULAR ADENOMA Scrotal varices (Acute) LEFT Medical History Diverticulosis Herpes zoster Scrotal varices Tubular adenoma of colon Surgical History Colonoscopy - IV Sedation (03/25/17) Repair of inguinal hernia (~08/2003) B/L Family History Mother , 92 Essential hypertension Heart disease Hyperlipidemia Father , 68 Diabetes Prostate cancer Sister Colon cancer Brother Diabetes Essential hypertension Hyperlipidemia Maternal Grandfather Throat cancer Paternal Grandfather , 66 Alcohol abuse Maternal Grandmother , 76 No problems noted. Paternal Grandmother , 77 Colon cancer Sister , MVA at age 60. No problems noted. Sister No problems noted. Sister No problems noted. Sister No problems noted. Son No problems noted. Son No problems noted. Social History (Updated 02/10/23 @ 10:43 by Lluvia Farah) Smoking/Tobacco Use Status: Never Second Hand Exposure: No Smoking risk assessment performed?: Yes Alcohol Intake: never Drug use: Never Substance use type: does not use Caregiver/Support person: No Household members: spouse and children Housing: house Communication Needs: None Do you need help understanding health information?: Never Pets and animals: Yes Pets and animals: dog(s) Sexually active: Yes Do you think of yourself as: straight/heterosexual Current gender identity: male What is your relationship status?: How often do you talk on the phone with friends or family?: once per week How often do you get together with friends or relatives?: three or more times per week How often do you attend samaritan or latter day services?: decline to answer Do you belong to any clubs or organized social groups?: no Panel score (0-1 are the most socially isolated patients): 2 What type of physical activity do you participate in: other Details: Farming Duration: > 90 minutes/day Frequency: daily Laura/Jain: No preference Special laura needs: No Seatbelt use: always Drive intox or ride w/intox school boat driver: No Do you feel safe at home: Yes Do you feel safe in your relationship?: Yes
[2023-10-20] MEDS: Dexamethasone 10 MG/ML VIAL PO (20:38)
[2023-10-20] MEDS: Ketorolac 15 MG/ML VIAL IM (20:38)
--- NOTE | 2023-10-20 20:55 | DI.RAD_ITS ---
Exam(s) XR KNEE LT 3V AP,LAT,CHAPO EXAM: XR KNEE LT 3V AP,LAT,CHAPO CLINICAL HISTORY: lateral left knee pain, after jump. TECHNIQUE: 2D digital imaging was performed. COMPARISON: No exams were available for comparison FINDINGS: There is a small joint effusion. No joint space narrowing. Tibial plateau and fibular head and neck are intact. With respect to the distal femur, there is a thin osteophytic strip measuring 17 x 1 mm parallel to t he cortical surface of the medial metaphysis of the distal femur. This may correspond to periosteal stripping at this level which is slightly above the medial collateral ligament attachment site. IMPRESSION: As above. Correlation with site of tenderness is recommended. DATA REPOSITORY: RADIATION DOSE DELIVERED:
--- NOTE | 2023-10-20 21:36 | DI.VRAD_ITS ---
PROCEDURE INFORMATION: Exam: XR Left Knee Exam date and time: 10/20/2023 8:52 PM Age: 63 years old Clinical indication: Other: Lateral left knee pain, after jump TECHNIQUE: Imaging protocol: Radiologic exam of the left knee. Views: 3 views. COMPARISON: No relevant prior studies available. FINDINGS: Bones/joints: No acute fracture or dislocation. There is small suprapatellar joint effusion. Mild tricompartmental marginal osteophyte formation. Soft tissues: Mild prepatellar soft tissue edema. IMPRESSION: 1. No acute fracture or dislocation. 2. Small joint effusion. Dictated and Authenticated by: Bernard Nayak MD. Ordering:GIULIA Rivera MD
== END 2023-10-20 21:59 | disposition home or self-care (01) ==
PROVIDERS: Emergency Provider Emergency Medicine; PCP Family Medicine
DX: M25.562 Pain in left knee (principal); K21.9 Gastro-esophageal reflux disease without esophagitis
CPT/HCPCS: 73562; 96372; 99284; 99283; J1100; J1885

== ENCOUNTER → 2023-12-02 01:47 | Outpatient (CLI) | payer BC, SELFPAY ==
--- NOTE | 2023-12-02 14:55 | DI.MRI_ITS ---
Exam(s) MR LOWER JOINT LT WO EXAM: MR LOWER JOINT LT WO CLINICAL HISTORY: L KNEE PAIN,internal derangement lt knee,m25.562,m23.92. TECHNIQUE: Multiplanar multisequence MRI was performed. COMPARISON: CR,XR XR KNEE LT 3V AP,LAT,CHAPO from 10/20/2023 FINDINGS: BONES: There is no fracture or contusion pattern. JOINTS: A small joint effusion is present. Articular cartilage: Patellofemoral joint: Thinning over medial patellar facet. Medial femoral tibial joint: Articular cartilage is unremarkable. Lateral femoral tibial joint: Articular cartilage is unremarkable. TENDONS: Extensor mechanism: Unremarkable. Medial retinaculum: Unremarkable. Lateral retinaculum: Unremarkable. Popliteus: Unremarkable. MUSCLES: Arm mild high signal at the arm proximal medial head of the gastrocnemius tendon at the medi al femoral condyle could represent partial tear or strain. MENISCI: The medial meniscus arm shows mildly increased signal in the posterior horn but no discrete tear. The lateral meniscus is unremarkable. SOFT TISSUES: Unremarkable. LIGAMENTS: Anterior Cruciate: Unremarkable. Posterior Cruciate: Unremarkable. Medial Collateral:Unremarkable. Lateral Collateral: Unremarkable. IMPRESSION: Edema seen at the origin of the medial head of the gastrocnemius muscle which could indicate partial tear or strain. Small joint effusion. Mildly increased signal medial meniscus without evidence of focal tear. Chondromalacia of the patella. DATA REPOSITORY:
== END ==
PROVIDERS: PCP Family Medicine; Visit Provider Student in an Organized Health Care Education/Training Program
DX: M25.562 Pain in left knee (principal)
CPT/HCPCS: 73721

== ENCOUNTER → 2024-12-08 09:22 | Outpatient (BNVA) | payer MEDICARE, SELFPAY | PROVIDERS: PCP Family Medicine; Referring Provider Family Medicine; Visit Provider Surgery | DX: Z12.11 Encounter for screening for malignant neoplasm of colon (principal); Z80.0 Family history of malignant neoplasm of digestive organs | CPT/HCPCS: S0285 ==

== ENCOUNTER 2024-12-30 08:40 | Day surgery (SDC) | payer MEDICARE, SELFPAY ==
--- NOTE | 2024-12-29 19:31 | W.PM.DSUDISC ---
Date of service: 12/30/24 Discharge Plan Disposition Patient Disposition: Home Condition: Good Discharge Details Reason For Visit: screening colonoscopy Attending Provider: Lane Hanley Primary Care Provider: Rosalia Leija Home Meds and New Rx's Prescriptions: Continued ascorbic acid (vitamin C) 500 mg tablet 500 mg PO DAILY ibuprofen 200 mg tablet 200 mg PO Q6H PRN cholecalciferol (vitamin D3) 50 mcg (2,000 unit) capsule 100 mcg PO DAILY Discontinued polyethylene glycol 3350 17 gram/dose powder 238 g PO ONCE Qty: 238 0RF Rx Instructions: take per colonoscopy instructions bisacodyl [Dulcolax (bisacodyl)] 5 mg tablet,delayed release (DR/EC) 5 mg PO ONCE Qty: 4 0RF Rx Instructions: take per colonoscopy instructions Discharge Instructions Instructions: Colon polyps, Diverticulosis Additional Instructions: Amrik, it was good seeing you today, and I hope you feel well after the procedure. I tried to be very careful with the gas in order to keep you comfortable. Your prep was excellent, and I could see everything fine. I did find, and removed a total of 5 polyps today. 2 of these were quite close to 1 another, and sent as 1 single specimen. None of the polyps appear particularly worrisome, and all were small. I will send these all off to the pathologist to review. Once I know the nature of his polyps, my office will be in touch with recommendations for future colonoscopies. If you need anything, or have any questions at all, please do not hesitate to ask. 1. If tolerated, consume a soft, low fiber diet for 1-2 days. 2[address] Do not drive, drink alcohol, operate machinery, make critical decisions, or do activities that require coordination or balance for 24 hours. 3. Because air was put into your colon during the procedure, expelling air from your rectum (passing gas or farting) is normal. 4. You may not have a bowel movement for 1-3 days because of the colonoscopy prep. This is normal. 5. Go directly to the emergency room if you notice any of the following: Develop chills (warm to touch), or if you have a thermometer and your temperature is above 101 Difficulty breathing or difficultly swallowing Persistent vomiting Severe abdominal pain, other than gas cramps Severe chest pain Black, tarry stools Any bleeding ? exceeding one tablespoon 6. Call your physician if the site where your intravenous was started becomes red, swollen, painful, and warm to touch. 7. Your physician has reviewed your pre-procedure medications. Please continue to take those medications as previously ordered. You will be given specific information/education regarding any changes to your medications before leaving. Activity:: Activity as Tolerated Diet:: As Tolerated Discharge Orders Discharge Orders: Discharge Order (Routine); Ordered 12/29/24 Ordered By: Lane Hanley DS: Diagnosis Discharge Diagnosis (1) Encounter for screening colonoscopy: Status: Acute Asessment and Plan: Follow-up on polypectomy results
--- NOTE | 2024-12-29 19:32 | W.COLOREPORT ---
Date of service: 12/30/24 Time of Service: 10:59 Colonoscopy Report Date of procedure: 12/30/24 Pre-op diagnosis general: screening colonoscopy Post-op diagnosis procedure note: other (Colon polyps, diverticulosis) Procedure: colonoscopy with polypectomy Surgeon: Lane Hanley Anesthesia Type: General:No Airway Estimated blood loss (mL): 5 Pathology: other (0.25 cm flat polyp at 65 cm, 0.25 cm flat polyp at 60 cm, 0.25 cm flat polyp at 15 cm x 2, 0.25 cm pedunculated polyp in the rectum) Complications: None Disposition: same day Indications: Amrik is a 64 year old man who needs a screening colonoscopy Prep: Miralax/Dulcolax Procedure Start Time: 10:23 Procedure End Time: 10:48 Retraction Time: 17 Findings: Sigmoid diverticulosis, 0.25 cm flat polyp at 65 cm, 0.25 cm flat polyp at 60 cm, 0.25 cm flat polyp at 15 cm x 2, 0.25 cm pedunculated polyp in the rectum Procedure Description: After the induction of anesthesia, and with the patient in left lateral decubitus position, I began by performing an external anorectal exam.? Perineum and skin were normal, as was the anal verge.? There was no evidence of external hemorrhoids.? Next, I performed a digital rectal exam.? I did not appreciate any abnormal findings.? Next, I advanced a colonoscope into the rectal vault.? I performed retroflexion.? This appeared normal.? Using irrigation, I then advanced the colonoscope beyond the rectal folds and into the sigmoid colon before advancing towards the cecum.? There is sigmoid diverticulosis.? The scope was noted to be in the cecum by identification of the ileocecal valve and appendiceal orifice.? I then began withdrawing the colonoscope using repeated irrigation as necessary for full evaluation of the colonic mucosa. Around 65 cm from the anal verge was a 0.25 cm flat polyp. This was removed with cold forceps with minimal bleeding. Another polyp was found around 60 cm from the anal verge. This was a little over 0.25 cm. This was removed with cold snare polypectomy without any difficulty. There is minimal bleeding from this site as well. Once the scope was withdrawn to the level of the rectum, great care was taken to examine portions of the rectal folds.? 2 polyps were found at 15 cm from the anal verge. These were just a few millimeters away from 1 another. Each of these polyps was about 0.25 cm and flat. Each of these was removed with cold forceps. These were sent as a single specimen. 1 last polyp was detected in the upper portion of the rectal vault. This was a little more pedunculated, but similar in size to the others. This was removed with cold forceps finally, the scope was withdrawn and the patient was brought to the same-day surgery recovery unit as the anesthetic wore off. ?The findings and instructions were shared with the patient prior to discharge. [place] Bowel Prep [place] Bowel Prep Right Colon: 3 Left Colon: 3 Transverse Colon: 3 Total Score: 9
[2024-12-30 08:43] VITALS: BP 130/76; PULSE 71; RESP 19; TEMP 36.2; O2SAT 99
[2024-12-30] MEDS: Lactated Ringers 1,000 ML 80 ML IV (09:17)
--- NOTE | 2024-12-30 09:18 | W.ANESPRE ---
General Info Date of Service Date Performed: 12/30/24 Height: 5 ft 6.5 in Weight: 72.2 kg Body Mass Index (BMI): 25.2 Surgical Procedure: Operation Date: 12/30/24 10:35 Proposed Procedure Side Surgeon p Colonoscopy Lane Hanley MD Meds Allergies and Home Medications Allergies Allergy/AdvReac Type Severity Reaction Status Date / Time No Known Allergies Allergy Verified 12/30/24 09:04 Home Medication ?Medication ?Instructions ?Recorded cholecalciferol (vitamin D3) 50 100 mcg PO DAILY 11/04/23 mcg (2,000 unit) capsule ibuprofen 200 mg tablet 200 mg PO Q6H PRN 11/04/23 ascorbic acid (vitamin C) 500 mg 500 mg PO DAILY 09/27/24 tablet Current Visit Medications: Current Medications Generic Name Dose Route Start Last Admin Trade Name Freq PRN Reason Stop Dose Admin Ringer's Solution 1,000 mls @ 80 mls/hr 12/30/24 06:00 12/30/24 09:17 IV 12/30/24 23:59 80 mls/hr INFUSION NETTE Administration IV Miscellaneous Supplies 1 each 12/30/24 06:00 Iv Access IV 12/30/24 23:59 DIRECTED NETTE Ondansetron HCl 4 mg 12/29/24 19:33 Ondansetron 4 Mg/2 Ml Vial IVP 01/28/25 19:32 Q4H PRN PRN Nausea / Vomiting Sodium Chloride 0 ml 12/30/24 06:00 Normal Saline Flush 10 Ml Syr IV 12/30/24 23:59 PRN PRN Sodium Chloride 0 ml 12/30/24 06:00 Normal Saline 10 Ml Vial IJ 12/30/24 23:59 DIRECTED PRN Sterile Water 0 ml 12/30/24 06:00 Water,Injection,Sterile 10 Ml Vial IJ 12/30/24 23:59 DIRECTED PRN PFSH Active Problems Active Problems: Problem Status Onset Code Encounter for screening colonoscopy Acute Z12.11 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 S84.12XA Contusion of knee, left Acute S80.02XA Skin lesion of cheek Acute L98.9 Hiatal hernia with gastroesophageal reflux Acute K44.9, K21.9 Foreign body (FB) in soft tissue Acute M79.5 GERD (gastroesophageal reflux disease) Chronic K21.9 Palpitations Acute R00.2 Abnormal stress test Acute R94.39 Urinary frequency Acute R35.0 COVID Acute ~03/2021 U07.1 Diarrhea Acute R19.7 Annual physical exam Acute 10/15/17 Z00.00 Diverticulosis of colon without diverticulitis Acute K57.30 Polyp of colon Acute K63.5 Scrotal varices Acute I86.1 Medical History Medical History Diverticulosis Herpes zoster Scrotal varices Tubular adenoma of colon Surgical History Surgical History Colonoscopy - IV Sedation (03/25/17) Repair of inguinal hernia (~08/2003) B/L Tobacco Smoking/Tobacco Use Status: Never Passive smoking exposure: No Second hand exposure: No Alcohol Alcohol Intake: never Substance Use Substance use: Never Substance use type: does not use Vital Signs and Lab Results Vital Signs Most Recent Vital Signs in EMR: Most Recent Vital Signs Temp Pulse Resp BP Pulse Ox 36.2 C L 71 19 130/76 99 12/30/24 08:43 12/30/24 08:43 12/30/24 08:43 12/30/24 08:43 12/30/24 08:43 Anesthesia Assessment and Plan Anesthesia History Personal History: Other Family History: No Family History of Anesthesia Complications Exercise Tolerance Exercise Tolerance: Metabolic Equivalents>4 Cardiac & Pulmonary Exam Cardiac Exam: Normal S1/S2 Heart Sounds Pulmonary Exam: Clear Bilateral Breath Sounds Implantable Cardiac Device Does patient have a Pacemaker or an ICD?: No Airway Exam Known Difficult Airway: No Mallampati Class: 1 Mouth Opening: Normal (> 3cm) Thyromental Distance: Greater than 3 cm Neck Range of Motion: Full ROM Neck Circumference: Normal Teeth Condition: Normal Dentition ASA Classification ASA Score: ASA 3 Emergency Case?: No NPO Status NPO Status: NPO Clears >2 hours, Solids >8 hours Anesthesia Plan Resuscitation Status: Full Code Anesthesia Technique: General Anesthesia Airway Planned: Natural Airway Monitors Used: Standard Monitors Preoperative Comments:: 64 yo male for colo. Sig PMHx: CAD, GERD (r/t hiatal hernia. Only has issues if he has been eating too much. Does sleep with HOB slightly elevated, unless he has not been eating), never smoker. Cath 2021: mild-mod CAD, no obstruction Stress: 13.4 METS, no scar/ischemia. ECHO: normal LV fxn, no valve issues.
[2024-12-30 09:24] VITALS: BMI 25.2
--- NOTE | 2024-12-30 10:35 | BOWEL_PTH ---
PATIENT: Jaime Maldonado LOC: [facility] U#:[id number] AGE/SX: 64/M ROOM: RE12/30/[address]: Lane Hanley MD : 1960 BED: DIS: 12/30/2024 SPEC #: [id number] RECD: 12/30/24 13:00 STATUS: [place] REGarth #: [id number] CRISTAL: 12/30/24 10:[address]: Lane Hanley DEPT: Surgical Specimen RECD BY: Samia Rivers ENTERED: 12/30/24 13:02 SP TYPE: Bowel OTHR DR: Rosalia Leija MD, DC Tissues: 1 - BIOPSY BOWEL 2 - BIOPSY BOWEL 3 - BIOPSY BOWEL 4 - BIOPSY BOWEL Procedures: GROSS AND MICRO LEVEL 4 Comments:
[2024-12-30 10:53] VITALS: BP 104/78; PULSE 72; RESP 15; TEMP 36; O2SAT 96
--- NOTE | 2024-12-30 11:08 | W.ANESPOSTOP ---
Postoperative Evaluation Date, Time and Location Date Performed: 12/30/24 Time Performed: 11:09 Patient Location: Day Surgery Unit Vital Signs Most Recent Imported Vital Signs: Most Recent Vital Signs Temp Pulse Resp BP Pulse Ox 36 C L 72 15 104/78 96 12/30/24 10:53 12/30/24 10:53 12/30/24 10:53 12/30/24 10:53 12/30/24 10:53 Assessment Mental Status: Awake (Alert & Oriented to Patient Baseline) Airway and Respiratory Function: Patent airway with normal (patient baseline) respiratory exam Cardiovascular Function: Hemodynamically Stable Hydration Status: Adequately Hydrated Nausea & Vomiting: No Nausea or Vomiting Pain: Pt. Denies Any Pain Peripheral Nerve Block: Patient did not receive a nerve block
[2024-12-30 11:35] VITALS: BP 134/81; PULSE 53; RESP 16; TEMP 36.1; O2SAT 99
== END 2024-12-30 12:00 | disposition home or self-care (01) ==
LOC: SUR 08:41
PROVIDERS: PCP Family Medicine; Visit Provider Surgery
PROC: 0DJD8ZZ Inspection of Lower Intestinal Tract, Via Natural or Artificial Opening Endoscopic (ICD-10-PCS; CPT 45378; principal; 2024-12-30 10:30)
DX: Z12.11 Encounter for screening for malignant neoplasm of colon (principal); K21.9 Gastro-esophageal reflux disease without esophagitis; K44.9 Diaphragmatic hernia without obstruction or gangrene; K57.30 Diverticulosis of large intestine without perforation or abscess without bleeding; D12.4 Benign neoplasm of descending colon; D12.8 Benign neoplasm of rectum
CPT/HCPCS: 45385; 45380; 88305; J2704